=== PATIENT | female | born 1980 | race Caucasian/White ===

== ENCOUNTER → 2017-09-01 | Outpatient (CLI) | payer OTHER ==
[~2017-09-01] MED LIST: PROAIR HFA8.5 GM INH; ZPAK PO; [UNRECOGNIZED DRUG - OTHER]
== END ==
LOC: M.ULTRA 08:40
DX: N28.1 Cyst of kidney, acquired (principal); R22.2 Localized swelling, mass and lump, trunk; R22.1 Localized swelling, mass and lump, neck; Z90.49 Acquired absence of other specified parts of digestive tract

== ENCOUNTER → 2017-09-22 | Outpatient (CLI) | payer OTHER | LOC: M.CT 09:15 | DX: R22.1 Localized swelling, mass and lump, neck (principal) ==

== ENCOUNTER → 2018-09-11 | Outpatient (CLI) | payer OTHER | LOC: M.ULTRA 09-05 13:00 → M.CT 09-05 13:00 | DX: R59.1 Generalized enlarged lymph nodes (principal); Z85.41 Personal history of malignant neoplasm of cervix uteri ==

== ENCOUNTER 2019-09-30 13:09 | Emergency (ER) | payer OTHER ==
[~2019-09-30] VITALS: Ht 167.6 cm; Wt 99.8 kg
[2019-09-30] MEDS ORDERED: PREMPHASE 0.621 EAC1 PO (13:18)
[2019-09-30] MEDS ORDERED: ANXIETY MED (13:18)
[2019-09-30 14:23] LABS: ABSOLUTE LYMPHOCYTES 1.2 thou/uL (0.8-5.3); ABSOLUTE MONOCYTES 0.4 thou/uL (0.0-1.2); ABSOLUTE NEUTROPHILS 3.4 thou/uL (1.6-8.1); BASOPHILS 0.8 %; EOSINOPHILS 0.6 %; HEMATOCRIT 43.5 % (37.0-47.0); HEMOGLOBIN 15.3 gm/dL (12.0-15.0); LYMPHOCYTES 23.5 %; MCH 32.8 pg (26.0-34.0); MCHC 35.2 g/dL (28.0-37.0); MCV 93.3 fL (80.0-100.0); MONOCYTES 7.1 %; MPV 8.2 fl. (7.2-11.1); NUCLEATED RBCS 0 /100WBC; PLATELET COUNT* 219 thou/uL (150-400); RBC 4.66 mil/uL (4.20-5.00); RDW-CV 12.9 % (10.5-14.5); WBC 4.9 thou/uL (4.0-11.0)
[2019-09-30 14:32] LABS: CALCIUM 8.8 mg/dL (8.5-10.1); CREATININE 0.8 mg/dL (0.6-1.3)
[2019-09-30 14:37] LABS: ALBUMIN 3.6 g/dL (3.4-5.0); TOTAL BILIRUBIN 0.4 mg/dL (<0.1-1.0); TOTAL PROTEIN 6.9 g/dL (6.4-8.2)
[2019-09-30 15:07] LABS: URINE BILIRUBIN NEGATIVE (Negative); URINE BLOOD NEGATIVE (Negative); URINE CLARITY CLEAR; URINE COLOR YELLOW; URINE GLUCOSE-RANDOM NEGATIVE (Negative); URINE KETONES NEGATIVE (Negative); URINE LEUKOCYTES NEGATIVE (Negative); URINE NITRITE NEGATIVE (Negative); URINE PROTEIN NEGATIVE (Negative); URINE SPECIFIC GRAVITY 1.015 (1.005-1.030); URINE UROBILINOGEN 0.2 E.U./dl (0.2-1.0)
[2019-09-30] MEDS ORDERED: HYDROXYZINE HCL25 M2 PO (15:20)
[2019-09-30] MEDS ORDERED: ATHLETE'S FOOT24 GM TOP (15:31)
[2019-09-30 15:40] VITALS: BP 111/72
--- NOTE | 2019-10-01 10:31 | EKG ---
[place] [address] ELECTROCARDIOGRAM REPORT Name: CLCELIA A Room: [facility]#: [id number] Admission: 09/30/19 Attend Phys: Discharge: 09/30/19 Date of : 80 Date of Service: 09/30/19 1312 Report #: [id number] THIS REPORT FOR: //name// [facility] ED Test Date: 2019-09-30 Test Time: 13:12:56 Pat Name: CELIA SMALLWOOD Department: Room: Gender: Tenant Coordinator: [facility] : 1980 Requested By: Radha Rebolledo Order Number: [id number] MD: Harpreet Holliday Measurements Intervals [place] Rate: 69 P: 45 MI: 159 QRS: 40 QRSD: 74 T: 38 QT: 379 QTc: 406 Interpretive Statements Sinus rhythm No previous ECG available for comparison Electronically Signed On 10-01-2019 10:29:47 CDT by Harpreet Holliday [email or web address] <ELECTRONICALLY SIGNED> By: Harpreet Holliday MD, [facility] 10/01/19 1029 1312 11 Harpreet Holliday MD, FACC /EPI
== END 2019-09-30 15:41 | disposition home or self-care (01) ==
LOC: M.ERS 13:09
PROVIDERS: Physician Assistant
DX: F41.9 Anxiety disorder, unspecified (principal); N63.0 Unspecified lump in unspecified breast; B35.3 Tinea pedis; Z90.49 Acquired absence of other specified parts of digestive tract; Z90.710 Acquired absence of both cervix and uterus; Z85.41 Personal history of malignant neoplasm of cervix uteri

== ENCOUNTER 2020-07-04 09:05 | Emergency (ER) | payer OTHER ==
[~2020-07-04] VITALS: Ht 167.6 cm; Wt 93.9 kg
[~2020-07-04 09:05] MED LIST changes: +ANXIETY MED; +ATHLETE'S FOOT24 GM TOP; +HYDROXYZINE HCL25 M2 PO; +PREMPHASE 0.621 EAC1 PO
[2020-07-04] MEDS ORDERED: DESYREL150 MG PO (09:15)
[2020-07-04] MEDS ORDERED: ALLERGY MED (09:15)
[2020-07-04] MEDS ORDERED: CHOLESTEROL MED (09:15)
[2020-07-04 09:52] LABS: ABSOLUTE BASOPHILS 0.1 thou/uL (0.0-0.2); ABSOLUTE EOSINOPHILS 0.1 thou/uL (0.0-0.7); ABSOLUTE LYMPHOCYTES 2.1 thou/uL (0.8-5.3); ABSOLUTE MONOCYTES 0.6 thou/uL (0.0-1.2); ABSOLUTE NEUTROPHILS 4.6 thou/uL (1.6-8.1); BASOPHILS 0.8 %; EOSINOPHILS 0.7 %; HEMATOCRIT 40.4 % (37.0-47.0); HEMOGLOBIN 13.8 gm/dL (12.0-15.0); LYMPHOCYTES 28.7 %; MCH 31.8 pg (26.0-34.0); MCHC 34.2 g/dL (28.0-37.0); MONOCYTES 8.1 %; MPV 8.4 fl. (7.2-11.1); NUCLEATED RBCS 0 /100WBC; PLATELET COUNT* 212 thou/uL (150-400); POLYS 61.7 %; RBC 4.35 mil/uL (4.20-5.00); RDW-CV 12.8 % (10.5-14.5); WBC 7.4 thou/uL (4.0-11.0)
[2020-07-04 10:02] LABS: CREATININE 0.7 mg/dL (0.6-1.3); POTASSIUM 3.2 mmol/L (3.5-5.1)
[2020-07-04 10:12] LABS: ALBUMIN 3.6 g/dL (3.4-5.0); MAGNESIUM 2.1 mg/dL (1.8-2.4); TOTAL BILIRUBIN 0.3 mg/dL (<0.1-1.0); TOTAL PROTEIN 6.4 g/dL (6.4-8.2)
[2020-07-04] MEDS ORDERED: NORCO 5-325 TA1 EAC2 PO (12:53)
[2020-07-04] MEDS ORDERED: ZPAK PO (12:53)
[2020-07-04 13:51] VITALS: BP 105/54
--- NOTE | 2020-07-05 09:38 | EKG ---
[place] [address] ELECTROCARDIOGRAM REPORT Name: CELIA SMALLWOOD Room: [facility]#: [id number] Admission: 07/04/20 Attend Phys: Discharge: 07/04/20 Date of : 80 Date of Service: 07/04/20907 Report #: [id number] THIS REPORT FOR: //name// [facility] ED Test Date: 2020-07-04 Test Time: 09:08:53 Pat Name: CELIA SMALLWOOD Department: Room: Gender: F [employer]: TP : 1980 Requested By: Freddy Guevara Order Number: [id number] MD: Harpreet Holliday Measurements Intervals [place] Rate: 64 P: 53 OR: 158 QRS: 40 QRSD: 94 T: 28 QT: 398 QTc: 411 Interpretive Statements Sinus rhythm Probable left atrial enlargement Compared to ECG 09/30/2019 13:12:56 No significant changes Electronically Signed On 07-05-2020 9:37:49 [employer]IL[employer] SUPERINTENDENT by Harpreet Holliday [email or web address] <ELECTRONICALLY SIGNED> By: Harpreet Holliday MD, [facility] 07/05/2037 7 7 Harpreet Holliday MD, [facility] /EPI
== END 2020-07-04 13:51 | disposition home or self-care (01) ==
LOC: M.ERS 09:05
PROVIDERS: Emergency Medicine Emergency Medical Services
DX: J18.9 Pneumonia, unspecified organism (principal); E78.00 Pure hypercholesterolemia, unspecified; E78.5 Hyperlipidemia, unspecified; F41.9 Anxiety disorder, unspecified; F17.210 Nicotine dependence, cigarettes, uncomplicated; Z90.711 Acquired absence of uterus with remaining cervical stump; Z90.49 Acquired absence of other specified parts of digestive tract; Z85.41 Personal history of malignant neoplasm of cervix uteri; Z79.899 Other long term (current) drug therapy